=== PATIENT | male | born 1960 | race Two or more races ===

== ENCOUNTER 2024-07-25 16:17 | Emergency (ER) | payer OTHER ==
[~2024-07-25] VITALS: Ht 180.3 cm; Wt 90.7 kg
[2024-07-25] MEDS ORDERED: TOPROL XL50 M1 (16:39)
[2024-07-25 16:40] VITALS: BP 156/87; O2SAT 99
[2024-07-25] MEDS ORDERED: COZAAR50 MG (16:40)
[2024-07-25] MEDS ORDERED: KETOROLAC TROMETHAMINE 60 MG VIAL IM STA (20:22)
[2024-07-25] MEDS ORDERED: TICAGRELOR 90 MG TABLET PO STA (20:24)
[2024-07-25] MEDS ORDERED: KETOROLAC TROMETHAMINE 60 MG VIAL IM ONE (20:32)
== END 2024-07-25 21:09 | disposition home or self-care (01) ==
LOC: ER 16:19
DX: M79.604 Pain in right leg (principal)
CPT/HCPCS: 96372; 99282; J1885

== ENCOUNTER 2024-07-26 08:21 | Outpatient (CLI) | payer OTHER | END 2024-07-26 08:24 | disposition home or self-care (01) | LOC: NUCLEAR 08:21 | DX: I82.409 Acute embolism and thrombosis of unspecified deep veins of unspecified lower extremity (principal); I87.2 Venous insufficiency (chronic) (peripheral) ==

== ENCOUNTER → 2024-07-26 | Emergency (ER) | payer OTHER ==
[~2024-07-26] VITALS: Ht 180.3 cm; Wt 99.8 kg
[~2024-07-26] MED LIST: COZAAR50 MG; TOPROL XL50 M1
== END | disposition left against medical advice (07) ==
LOC: ER 07:32
DX: Z53.21 Procedure and treatment not carried out due to patient leaving prior to being seen by health care provider (principal)